=== PATIENT | female | born 1950 | race Caucasian/White ===

== ENCOUNTER 2016-09-24 07:18 | Day surgery (SDC) | payer MEDICARE ==
[2016-09-24 08:25] VITALS: BMI 24.2
[2016-09-24] MEDS ORDERED: Lactated Ringer's 500 ML IV ONE ×2 (09:45→10:18)
[2016-09-24] MEDS ORDERED: Midazolam 2 MG/2 ML VIAL ONE (09:48)
[2016-09-24] MEDS ORDERED: Propofol 10 mg/ml Inj (20 ML) ONE (09:48)
[2016-09-24 10:50] VITALS: O2SAT 100
[2016-09-24 11:44] VITALS: BP 160/77; PULSE 70; RESP 14; TEMP 96.5
== END 2016-09-24 11:30 | disposition home or self-care (01) ==
LOC: C.ENDO 07:18
PROVIDERS: ATTEND Internal Medicine Gastroenterology
DX: K21.0 Gastro-esophageal reflux disease with esophagitis (principal); K29.60 Other gastritis without bleeding; K57.30 Diverticulosis of large intestine without perforation or abscess without bleeding; K64.0 First degree hemorrhoids
CPT/HCPCS: 43239; 45378; 88305; 88312; 88342; J2250; J2704; J3010; J7040; J7120